=== PATIENT | male | born 1990 | race Native Hawaiian/Other Pacific Islander ===

== ENCOUNTER 2021-10-18 08:15 | Emergency (ER) | payer OTHER ==
[~2021-10-18] VITALS: Ht 195.6 cm; Wt 117.9 kg
[2021-10-18 08:31] VITALS: TEMP 97
[2021-10-18 09:33] LABS: PLATELET COUNT 198 K/uL (142-355)
[2021-10-18 09:34] LABS: POTASSIUM 4.9 mmol/L (3.6-5.2)
[2021-10-18 12:30] VITALS: BP 134/83
== END 2021-10-18 12:52 | disposition home or self-care (01) ==
LOC: ED 08:15
PROVIDERS: Emergency Medicine
DX: N39.0 Urinary tract infection, site not specified (principal); Z20.822 Contact with and (suspected) exposure to COVID-19
CPT/HCPCS: 36415; 80053; 81000; 85027; 87088; 87502; 87635; 96360; 96375; 99284; J2405; U0003